=== PATIENT | female | born 1955 | race Caucasian/White ===

== ENCOUNTER 2017-05-10 20:25 | Emergency (ER) | payer MEDICAID ==
[2017-05-10 21:43] LABS: CALCIUM 9.1 mg/dL (8.5-10.1); CARBON DIOXIDE 24.6 mmol/L (21-32); POTASSIUM SERUM 4.1 mmol/L (3.5-5.1)
[2017-05-10 21:48] LABS: ALBUMIN 3.9 g/dL (3.4-5.0); BILIRUBIN TOTAL 0.6 mg/dL (0.20-1.00); MAGNESIUM 1.7 mg/dL (1.8-2.4); TOTAL PROTEIN, SERUM 7.5 g/dL (6.4-8.2)
[2017-05-10 21:51] LABS: PLATELET COUNT 235 x10^3mcL (130-400); RED CELL DISTRIBUTION WIDTH 13.3 % (11.5-14.5)
[2017-05-10 21:53] LABS: BASOPHIL % 0 % (0-2)
[2017-05-10 22:13] LABS: UA SPECIFIC GRAVITY 1.005 (1.005-1.035)
[2017-05-10 22:14] LABS: microscopic required? YES; urine erythrocyte TRACE (NEGATIVE)
[2017-05-10 23:30] VITALS: BP 132/62
== END 2017-05-10 23:30 | disposition home or self-care (01) ==
LOC: ED 20:25
PROVIDERS: Emergency Medicine
DX: E11.65 Type 2 diabetes mellitus with hyperglycemia (principal); R11.10 Vomiting, unspecified; M54.5 Low back pain; M19.90 Unspecified osteoarthritis, unspecified site; Z79.1 Long term (current) use of non-steroidal anti-inflammatories (NSAID); Z79.84 Long term (current) use of oral hypoglycemic drugs; Z79.899 Other long term (current) drug therapy
CPT/HCPCS: J1815; J1885; J2405; J3475; J3490; Q0092

== ENCOUNTER 2017-11-13 12:19 | Emergency (ER) | payer SELFPAY ==
[~2017-11-13] VITALS: Ht 172.7 cm; Wt 77.1 kg
[2017-11-13 12:34] VITALS: Ht 172.7 cm; Wt 77.1 kg
[2017-11-13 18:12] VITALS: BP 124/67
== END 2017-11-13 18:12 | disposition home or self-care (01) ==
LOC: ED 12:19
DX: I88.9 Nonspecific lymphadenitis, unspecified (principal); Z90.49 Acquired absence of other specified parts of digestive tract
CPT/HCPCS: J1885

== ENCOUNTER 2018-07-16 17:09 | Emergency (ER) | payer MEDICAID ==
[~2018-07-16] VITALS: Ht 170.2 cm; Wt 77.1 kg
[2018-07-16 17:15] VITALS: Ht 170.2 cm; Wt 77.1 kg
[2018-07-16 19:05] VITALS: BP 117/72
== END 2018-07-16 19:05 | disposition home or self-care (01) ==
LOC: ED 17:09
DX: J40 Bronchitis, not specified as acute or chronic (principal); J32.9 Chronic sinusitis, unspecified; M54.9 Dorsalgia, unspecified; E11.9 Type 2 diabetes mellitus without complications; M19.90 Unspecified osteoarthritis, unspecified site
CPT/HCPCS: J7512; J7620

== ENCOUNTER 2019-02-03 19:04 | Emergency (ER) | payer MEDICAID ==
[~2019-02-03] VITALS: Ht 170.2 cm; Wt 85.7 kg
[2019-02-03 19:11] VITALS: BP 158/79; Ht 170.2 cm; Wt 85.7 kg
== END 2019-02-03 21:23 | disposition home or self-care (01) ==
LOC: ED 19:04
DX: J20.8 Acute bronchitis due to other specified organisms (principal); R07.89 Other chest pain; E11.9 Type 2 diabetes mellitus without complications; M19.90 Unspecified osteoarthritis, unspecified site
CPT/HCPCS: Q0092

== ENCOUNTER 2020-10-26 19:08 | Emergency (ER) | payer MEDICAID ==
[~2020-10-26] VITALS: Ht 170.2 cm; Wt 80.3 kg
[2020-10-26 19:16] VITALS: Ht 170.2 cm; Wt 80.3 kg
[2020-10-26 19:39] VITALS: BP 136/63
== END 2020-10-26 21:11 | disposition home or self-care (01) ==
LOC: ED 19:08
DX: M54.5 Low back pain (principal); E11.9 Type 2 diabetes mellitus without complications; M19.90 Unspecified osteoarthritis, unspecified site
CPT/HCPCS: J1885